=== PATIENT | female | born 1955 | race Caucasian/White ===

== ENCOUNTER → 2017-07-03 14:17 | Outpatient (CLI) | payer BC, SELFPAY ==
--- NOTE | 2017-07-03 14:20 | HPBI_ITS ---
MAMMOGRAPHY - BILATERAL SCREENING REASON FOR EXAM: Female, 61 years old. Routine annual screening examination. PERTINENT HISTORY: Non-contributory. Remote right stereotactic breast biopsy and prior ductal excision. TECHNIQUE: Digital bilateral breast tolu (3D mammographic acquisition) in the CC and MLO projections. 2-D mediolateral oblique (MLO) and craniocaudad (CC) views of both breasts were obtained. CAD: Full Field Digital Mammography with Computer Added Detection was performed. COMPARISON: Comparison is made with prior study dated June 07, 2016 and May 19, 2015. FINDINGS: Breast Composition: The breasts are heterogeneously dense, which may obscure small masses. There are no dominant masses or suspicious calcifications. Stable densely calcified nodule in the upper deep portion of the right breast. This measures 2.4 cm. This is unchanged and most likely represents a calcified fibroadenoma. A tissue clip marker is seen in the inferior midportion of the right breast. No other significant abnormalities are identified. There has been no significant change since the prior study. HPBI/SCREENING MAMM (CAD), BILAT IMPRESSION: Stable bilateral screening mammogram. Yearly follow-up mammogram recommended. (A) ASSESSMENT CATEGORY: BIRADS Category 2: Benign. A letter regarding these results will be sent to the patient by the facility within 30 days. Approximately 10% of breast cancers are not detected by mammography. A normal mammogram should not delay biopsy of a clinically suspicious abnormality. [id number] Electronically Signed: Raúl Farr MD at 8:48 EST Tel [phone], Service support ,
== END ==
PROVIDERS: Family Provider Family Medicine; PCP Family Medicine; Visit Provider Obstetrics & Gynecology
DX: Z12.31 Encounter for screening mammogram for malignant neoplasm of breast (principal)
CPT/HCPCS: 77063; 77067

== ENCOUNTER → 2018-07-21 13:27 | Outpatient (CLI) | payer BC, SELFPAY ==
--- NOTE | 2018-07-21 13:29 | BI_ITS ---
MAMMOGRAPHY - BILATERAL SCREENING REASON FOR EXAM: Female, 62 years old. Routine annual screening examination. PERTINENT HISTORY: Non-contributory. History of remote right stereotactic breast biopsy. TECHNIQUE: Digital bilateral breast tolu (3D mammographic acquisition) in the CC and MLO projections. 2-D mediolateral oblique (MLO) and craniocaudad (CC) views of both breasts were obtained. CAD: Full Field Digital Mammography with Computer Added Detection was performed. COMPARISON: Comparison is made with prior study dated July 03, 2017 and June 07, 2016. FINDINGS: Breast Composition: The breasts are extremely dense, which lowers the sensitivity of mammography. There are no dominant masses or suspicious calcifications. Stable densely calcified nodule in the anterior upper aspect of the right breast. This measures 2.4 cm. A tissue clip marker is once again seen in the inferior midportion of the right breast. No other significant abnormalities are identified. There has been no significant change since the prior study. BI/SCREENING MAMM (CAD), BILAT IMPRESSION: Stable bilateral screening mammogram. Yearly follow-up mammogram recommended. (A) ASSESSMENT CATEGORY: BIRADS Category 2: Benign. A letter regarding these results will be sent to the patient by the facility within 30 days. Approximately 10% of breast cancers are not detected by mammography. A normal mammogram should not delay biopsy of a clinically suspicious abnormality. [id number] Electronically Signed: Raúl Farr, at 14:56 EDT , Service support ,
== END ==
PROVIDERS: Family Provider Family Medicine; PCP Family Medicine; Referring Provider Obstetrics & Gynecology; Visit Provider Obstetrics & Gynecology
DX: Z12.31 Encounter for screening mammogram for malignant neoplasm of breast (principal)
CPT/HCPCS: 77063; 77067

== ENCOUNTER 2018-12-25 09:19 | Day surgery (SDC) | payer BC, SELFPAY ==
[2018-12-25] VITALS (12 sets, daily range): BP systolic 129–168; BP diastolic 71–89; PULSE 80–100; RESP 16; TEMP 36.2–36.9; O2SAT 97–100; BMI 25.0
[2018-12-25 10:01] LABS: Bedside Glucose 221 mg/dL (70-110)
--- NOTE | 2018-12-25 10:27 | PCM.HP.STD ---
Problem List (1) Screening for intestinal cancer Status: Acute History of Present Illness Date of Admission: 12/25/18 The patient is a 63 year old F who presents for screening colonoscopy today. She enjoys good health. She is diabetic. Glucoses run high in the morning. She denies bright red blood per rectum or melena. No abdominal pain. No change in bowel habits. She has never had a previous colonoscopy. Past Medical History Allergies latex Allergy (Verified 12/25/18 09:35) Rash Home Medications: Ambulatory Orders Medication Instructions Recorded Lisinopril 20 mg PO DAILY 10/25/14 Aspirin [Aspirin, Baby] 81 mg PO DAILY@0800 11/02/14 Cholecalciferol (Vitamin D3) 2,000 unit PO DAILY 11/02/14 [D3-2000] Multivit-Min/Iron Fum/Folic AC 1 each PO DAILY 11/02/14 [Monocaps Tablet] Cider Vinegar [Apple Cider Vinegar] 600 mg PO DAILY 12/18/18 L.acidoph,Paracasei, B.lactis 1 ea PO DAILY 12/18/18 [Probiotic] Loratadine 10 mg PO DAILY 12/18/18 Lovastatin 20 mg PO QHS 12/18/18 Pioglitazone [Actos] 30 mg PO DAILY 12/18/18 Smoking Status: Never smoker Tobacco Use: Non-smoker Review of Systems Constitutional: Denies: Anorexia HEENT: Denies: Difficulty Swallowing Cardiovascular: Denies: Chest Pain Respiratory: Denies: Cough Gastrointestinal: Denies: Abdominal Pain, Hematochezia, Melena Endocrine: Denies: Change in Body Habitus VTE Information - Inpt Only VTE Present on Admission: No Patient Problems: Active and Suspected Problems Screening for intestinal cancer (Acute) - Physical Exam General: Alert, Oriented x3, Cooperative, No apparent distress Oral: Moist Mucosa Neck: Supple Lungs: Clear to auscultation Cardiovascular: Regular rate, Regular Rhythm Abdomen: Bowel Sounds Present, Soft, Non Tender Extremities: No Calf Tenderness Neurological: - - Normal cognition Psych/Mental Status: Normal Affect Vital Signs Temp Pulse Resp BP Pulse Ox 97.2 F L 100 16 152/82 H 100 12/25/18 09:40 12/25/18 09:40 12/25/18 09:40 12/25/18 09:40 12/25/18 09:40 Oxygen Delivery Method Room Air Weight: 150 lb 2.157 oz Body Mass Index (BMI) 25.0 Finger Stick Blood Glucose 190 POC Glucose 12/25/18 09:49 POC Glucose 221 H Assessment/Plan All Active Problems Screening for intestinal cancer (Acute) I recommended the patient a screening colonoscopy today with possible biopsy or polypectomy is indicated. She is aware of the technique, benefits, risks, alternatives. She has had an opportunity to ask and have questions answered. Presents via our open access program today. Milo Rico M.D., F.A.C.S.
--- NOTE | 2018-12-25 10:57 | OP.ENDO_ITS ---
12/25/2018 Kvng Santillan Re : Colonoscopy procedure for Tara Iglesias Dear Jacque This procedure was performed on Tuesday, December 25, 2018. My impressions and recommendations are as follows: Impressions : - Hemorrhoids found on perianal exam. - Diverticulosis in the entire examined colon. - The examination was otherwise normal. - No specimens collected. Recommendations : - Discharge patient to home. - Resume previous diet. - Continue present medications. - Repeat colonoscopy in 10 years for screening purposes. My findings are described in the full procedure note, which is enclosed. If I can be of further assistance, please feel free to contact me at Doctor phone number(s): Work: . Sincerely, Milo Rico MD 12/25/2018 10:56:41 AM This report has been signed electronically.
== END 2018-12-25 11:45 | disposition home or self-care (01) ==
LOC: EN 09:20 → AC 09:21
PROVIDERS: Family Provider Family Medicine; PCP Family Medicine; Referring Provider Family Medicine; Visit Provider Surgery
PROC: 0DJD8ZZ Inspection of Lower Intestinal Tract, Via Natural or Artificial Opening Endoscopic (ICD-10-PCS; CPT 45378; principal; 2018-12-25 10:25)
DX: Z12.11 Encounter for screening for malignant neoplasm of colon (principal); E11.9 Type 2 diabetes mellitus without complications; Z91.040 Latex allergy status; Z79.82 Long term (current) use of aspirin; K64.9 Unspecified hemorrhoids; K57.30 Diverticulosis of large intestine without perforation or abscess without bleeding
CPT/HCPCS: 45378; 82962; 99152; 99153; J7120

== ENCOUNTER → 2019-09-30 13:45 | Outpatient (CLI) | payer OTHER, SELFPAY ==
[2019-07-26 09:01] VITALS: BMI 26.8
--- NOTE | 2019-09-30 13:48 | BI_ITS ---
MAMMOGRAPHY - BILATERAL SCREENING REASON FOR EXAM: Female, 64 years old. Routine annual screening examination. PERTINENT HISTORY: Non-contributory. Remote right excisional breast biopsy and stereotactic biopsy. TECHNIQUE: Digital bilateral breast charlene (3D mammographic acquisition) in the CC and MLO projections. 2-D mediolateral oblique (MLO) and craniocaudad (CC) views of both breasts were obtained. CAD: Full Field Digital Mammography with Computer Added Detection was performed. COMPARISON: Comparison is made with prior examination dated July 21, 2018 and July 03, 2017. FINDINGS: Breast Composition: The breasts are extremely dense, which lowers the sensitivity of mammography. There are no dominant masses or suspicious calcifications. Stable densely calcified nodule in the anterior superior aspect of the right breast. No other significant abnormalities are identified. There has been no significant change since the prior study. BI/SCREEN MAMM (CAD) W/CHARLENE BILAT IMPRESSION: Stable bilateral screening mammogram. Yearly follow-up mammogram recommended. (A) ASSESSMENT CATEGORY: BIRADS Category 2: Benign. A letter regarding these results will be sent to the patient by the facility within 30 days. Approximately 10% of breast cancers are not detected by mammography. A normal mammogram should not delay biopsy of a clinically suspicious abnormality. [id number] Electronically Signed: Raúl Farr, at 10:42 EDT , Service support ,
== END ==
PROVIDERS: PCP Family Medicine; Referring Provider Obstetrics & Gynecology; Visit Provider Obstetrics & Gynecology
DX: Z12.31 Encounter for screening mammogram for malignant neoplasm of breast (principal)
CPT/HCPCS: 77063; 77067

== ENCOUNTER → 2020-08-11 13:52 | Outpatient (CLI) | payer OTHER, SELFPAY ==
[2020-06-12 08:17] VITALS: BMI 24.3
--- NOTE | 2020-08-11 13:30 | VUL_PTH ---
PATIENT: DAVIS MAYFIELD LOC: [facility] U#:[id number] AGE/SX: 69/F ROOM: RE08/11/[address]: Dr. Jose Alfredo Nieto MD : 1955 BED: DIS: SPEC #: [id number] RECD: 08/11/20 14:36 STATUS: DEBI REHawk #: [id number] SHELBY: 08/11/20 13:[address]: Jose Alfredo Nieto DEPT: SURGICAL PATHOLOGY RECD BY: Татьяна Adame ENTERED: 08/14/20 08:22 SP TYPE: VULVA BX OTHR DR: Dr. Kvng Santillan MD Tissues: Vulva, NOS Procedures: Surgery Specimen Level IV HEADER OPERATION: Vulva and perineum biopsy PRE-OP DIAGNOSIS: N90.7 TISSUE SUBMITTED: A - Vulva biopsy left side, B - Perineum biopsy MICROSCOPIC DIAGNOSIS A. Left side vulva, biopsy: A piece of skin with underlying fibroadipose tissue, negative for dysplasia or malignancy. See comment. B. Perineum, biopsy: A piece of skin with mild chronic inflammation. Negative for dysplasia or malignancy. See comment. JENNIFER:myra 08/15/2020 COMMENT Clinical correlation and appropriate follow up are necessary. Case has been reviewed in consultation with Dr. White who concurs with the above diagnosis. IDC:AM MICROSCOPIC DESCRIPTION Slides are reviewed. GROSS DESCRIPTION A - Received in fixative is one container labeled with the patient's name and designated left side vulvar biopsy. The specimen consists of a piece of pearl-pink soft tissue measuring 0.6 x 0.6 x 0.3 cm. The specimen is totally submitted in one cassette. B - Received in fixative is one container labeled with the patient's name and designated perineum biopsy. The specimen consists of a piece of pearl-white skin measuring 0.4 x 0.2 x 0.1 cm. The specimen is totally submitted in one cassette. / JENNIFER:myra 08/14/20 TC:3 CPT: 28401 x2
== END ==
PROVIDERS: PCP Family Medicine; Visit Provider Obstetrics & Gynecology
DX: N90.7 Vulvar cyst (principal)
CPT/HCPCS: 88305

== ENCOUNTER → 2020-10-03 11:09 | Outpatient (CLI) | payer MEDICARE, BC, SELFPAY ==
[2020-06-12 08:17] VITALS: BMI 24.3
--- NOTE | 2020-10-03 11:13 | BI_ITS ---
MAMMOGRAPHY - BILATERAL SCREENING REASON FOR EXAM: Female, 65 years old. Routine annual screening examination. PERTINENT HISTORY: Non-contributory. Remote right excisional and right stereotactic breast biopsies. TECHNIQUE: Digital bilateral breast charlene (3D mammographic acquisition) in the CC and MLO projections. 2-D mediolateral oblique (MLO) and craniocaudad (CC) views of both breasts were obtained. CAD: Full Field Digital Mammography with Computer Added Detection was performed. COMPARISON: Comparison is made with prior study dated 09/30/2019 and 07/21/2018. FINDINGS: Breast Composition: The breasts are extremely dense, which lowers the sensitivity of mammography. There are no dominant masses or suspicious calcifications. Stable dense calcification in the upper deep central portion of the right breast. No other significant abnormalities are identified. There has been no significant change since the prior study. BI/SCRN MAMM (CAD)W/CHARLENE BILAT IMPRESSION: Stable bilateral screening mammogram. Yearly follow-up mammogram recommended. (A) ASSESSMENT CATEGORY: BIRADS Category 2: Benign. A letter regarding these results will be sent to the patient by the facility within 30 days. Approximately 10% of breast cancers are not detected by mammography. A normal mammogram should not delay biopsy of a clinically suspicious abnormality. [id number] Electronically Signed: Raúl Farr MD at 12:03 EDT , Service support ,
== END ==
PROVIDERS: PCP Family Medicine; Referring Provider Obstetrics & Gynecology; Visit Provider Obstetrics & Gynecology
DX: Z12.31 Encounter for screening mammogram for malignant neoplasm of breast (principal)
CPT/HCPCS: 77063; 77067

== ENCOUNTER → 2021-02-21 13:53 | Outpatient (CLI) | payer MEDICARE, BC, SELFPAY ==
--- NOTE | 2021-02-21 14:03 | MRI_ITS ---
STUDY: MRI BRAIN WITH AND WITHOUT CONTRAST (ATTENTION INTERNAL AUDITORY CANALS - I.A.C.''s) REASON FOR EXAM: Female, 65 years old. LT HEARING LOSS, DIZZINESS TECHNIQUE: Standardized multiplanar fat and water weighted pulse sequences were obtained. IV 13mL Dotarem was administered for the contrast portion of the examination. COMPARISON: None. FINDINGS: Normal bilateral temporal bones. Normal bilateral internal auditory canals. There is no demonstrated intracanalicular or cisternal vestibular schwannoma (acoustic neuroma). There is no enhancement of the bilateral VIIth or VIIIth cranial nerves. Normal bilateral cochlea, vestibules and semicircular canals. Normal size of the ventricles and extra-axial spaces for the patient''s age. Normal white matter tracts of the supratentorial brain. There is no evidence for recent intracranial ischemia or other cause of cytotoxic edema on diffusion weighted imaging (DWI). Normal bilateral basal ganglia. Normal thalami. Normal flow voids within the major intracranial circulation suggesting patency by spin echo criteria. Normal venous enhancement. There is no enhancing intra-axial or extra-axial abnormality. There is no extra-axial fluid accumulation. Normal sella turcica, pituitary gland, infundibular stalk, optic chiasm and hypothalamus. Normal tectal plate and pineal gland. Normal midbrain, susi and medulla. Normal cerebellum. Normal basal cisterns. No demonstrated orbital abnormality, within the constraints of a routine brain study. Mucosal thickening of the left sphenoid sinus consistent with chronic sinusitis. Normal calvarium and skull base. Normal visualized soft tissue structures. Normal visualized upper cervical spine. MRI/Brain W/WO Contrast IMPRESSION: Normal unenhanced and enhanced MRI of the bilateral internal auditory canals (I.A.C''s). Chronic left sphenoid sinusitis. Electronically Signed: Declan Dove MD at 15:54 EDT Tel , Service support ,
[2021-02-21 14:25] LABS: CREATININE FINGERSTICK 0.9 mg/dL (0.55-1.02); EGFR FINGERSTICK > 60.0000 mL/min (>60)
== END ==
PROVIDERS: PCP Family Medicine; Referring Provider Otolaryngology; Visit Provider Otolaryngology
DX: H90.42 Sensorineural hearing loss, unilateral, left ear, with unrestricted hearing on the contralateral side (principal); H93.12 Tinnitus, left ear; R42 Dizziness and giddiness
CPT/HCPCS: 70553; A9575

== ENCOUNTER → 2021-11-20 | Outpatient (CLI) | payer MEDICARE, BC, SELFPAY ==
--- NOTE | 2021-11-20 14:43 | BI_ITS ---
MAMMOGRAPHY - BILATERAL SCREENING REASON FOR EXAM: Female, 66 years old. Routine annual screening examination. PERTINENT HISTORY: Non-contributory. Prior right stereotactic breast biopsy. TECHNIQUE: Digital bilateral breast charlene (3D mammographic acquisition) in the CC and MLO projections. 2-D mediolateral oblique (MLO) and craniocaudad (CC) views of both breasts were obtained. CAD: Full Field Digital Mammography with Computer Added Detection was performed. COMPARISON: Comparison is made with prior study dated 10/03/2020 and 09/30/2019. FINDINGS: Breast Composition: The breasts are extremely dense, which lowers the sensitivity of mammography. There are no dominant masses or suspicious calcifications. Stable densely calcified nodule in the upper deep slightly lateral aspect of the right breast. No other significant abnormalities are identified. There has been no significant change since the prior study. BI/SCRN MAMM (CAD)W/CHARLENE BILAT IMPRESSION: Stable bilateral screening mammogram. Yearly follow-up mammogram recommended. (A) ASSESSMENT CATEGORY: BIRADS Category 2: Benign. A letter regarding these results will be sent to the patient by the facility within 30 days. Approximately 10% of breast cancers are not detected by mammography. A normal mammogram should not delay biopsy of a clinically suspicious abnormality. [id number] Electronically Signed: Raúl Farr MD at 15:27 EDT ,
== END | disposition home or self-care (01) ==
LOC: OPBI 14:41
PROVIDERS: PCP Family Medicine; Visit Provider Family Medicine
DX: Z12.31 Encounter for screening mammogram for malignant neoplasm of breast (principal)
CPT/HCPCS: 77063; 77067

== ENCOUNTER → 2021-12-18 | Outpatient (CLI) | payer MEDICARE, BC, SELFPAY ==
--- NOTE | 2021-12-18 15:11 | US_ITS ---
STUDY: RENAL ULTRASOUND - COMPLETE REASON FOR EXAM: Female, 66 years old. Normal renal function TECHNIQUE: Ultrasound evaluation of the kidneys was performed with real-time and static lopez-scale imaging. COMPARISON: None. FINDINGS: RIGHT KIDNEY: The right kidney measures 11.3 x 6.0 x 4.8 cm. The renal cortex measures 1.3 cm. There is no right renal mass or cyst. There are no right renal calculi. There is no right hydronephrosis. DISTAL RIGHT URETER: There is non-visualization of the distal right ureter. There is no demonstrated right ureterovesical junction calculus. There is a visualized right ureteral jet. LEFT KIDNEY: The left kidney measures 10.9 x 4.3 x 4.2 cm. The renal cortex measures 1.2 cm. There is no left renal mass or cyst. There are no left renal calculi. There is no left hydronephrosis. DISTAL LEFT URETER: There is non-visualization of the distal left ureter. There is no demonstrated left ureterovesical junction calculus. There is a visualized left ureteral jet. BLADDER: The distended urinary bladder has a volume of 161 ml. There is a normal wall thickness of the distended urinary bladder, measuring 4 mm. There is no demonstrated mass within the urinary bladder. There are no demonstrated bladder calculi. US/Kidney and Bladder IMPRESSION: Normal ultrasound of the kidneys and urinary bladder. Electronically Signed: John Apodaca MD at 4:54 EDT ,
== END | disposition home or self-care (01) ==
LOC: US 15:09
PROVIDERS: PCP Family Medicine; Referring Provider Family Medicine; Visit Provider Family Medicine
DX: N28.9 Disorder of kidney and ureter, unspecified (principal)
CPT/HCPCS: 76770

== ENCOUNTER → 2022-01-03 | Outpatient (CLI) | payer MEDICARE, BC, SELFPAY ==
--- NOTE | 2022-01-03 08:47 | US_ITS ---
STUDY: ABDOMINAL ULTRASOUND - RIGHT UPPER QUADRANT REASON FOR VISIT: Female, 66 years old worsening diabetes -- pancreas, liver, bile duct TECHNIQUE: Ultrasound evaluation of the right upper quadrant was performed with real-time and static terrazas-scale imaging. TECHNICAL QUALITY: Adequate. COMPARISON: None. FINDINGS: Liver: The liver measures 16.4 cm. There is a heterogeneous echogenicity of the liver. There is evidence of fatty infiltration of the liver with areas of focal fatty sparing. The bile ducts are within normal limits. There is hepatic color flow. The direction of portal flow is hepatopetal. There is no demonstrated mass lesion. Gallbladder: Normal distended gallbladder. The gallbladder wall measures 1.9 mm. There is a negative sonographic Knutson''s sign. There is no pericholecystic fluid. There are no gallstones. There is a 3 mm x 3 mm gallbladder polyp. Common Bile Duct (C.B.D.): The common bile duct measures 5.2 mm. Pancreas: Normal size of the head, body and tail of the pancreas. There is increased echogenicity of the pancreas. There is no demonstrated pancreatic mass or cyst. Right Kidney: Normal size of the right kidney. The right kidney measures 11.2 cm x 6.4 cm x 5.3 cm. Normal renal cortex. The right cortex measures 1.3 cm. There is no demonstrated renal mass or cyst. There is no right hydronephrosis. US/Abdomen Limited IMPRESSION: Heterogeneous appearance of the liver with evidence of fatty infiltration and focal areas of fatty sparing. 3 mm x 3 mm gallbladder polyp. Electronically Signed: Raúl Farr MD at 15:02 EDT ,
== END | disposition home or self-care (01) ==
LOC: US 08:46
PROVIDERS: PCP Family Medicine; Referring Provider Internal Medicine Endocrinology, Diabetes & Metabolism; Visit Provider Internal Medicine Endocrinology, Diabetes & Metabolism
DX: E11.9 Type 2 diabetes mellitus without complications (principal); Z80.0 Family history of malignant neoplasm of digestive organs
CPT/HCPCS: 76705

== ENCOUNTER → 2022-11-21 | Outpatient (CLI) | payer MEDICARE, BC, SELFPAY ==
--- NOTE | 2022-11-21 10:27 | BI_ITS ---
MAMMOGRAPHY - BILATERAL SCREENING REASON FOR EXAM: Female, 67 years old. Routine annual screening examination. PERTINENT HISTORY: Non-contributory. Remote right excisional breast biopsy and right stereotactic breast biopsy. TECHNIQUE: Digital bilateral breast charlene (3D mammographic acquisition) in the CC and MLO projections. 2-D mediolateral oblique (MLO) and craniocaudad (CC) views of both breasts were obtained. CAD: Full Field Digital Mammography with Computer Added Detection was performed. COMPARISON: Comparison is made with prior study dated November 20, 2021 and October 03, 2020. FINDINGS: Breast Composition: The breasts are extremely dense, which lowers the sensitivity of mammography. There are no dominant masses or suspicious calcifications. Stable densely calcified nodule in the upper posterior lateral aspect of the right breast. No other significant abnormalities are identified. There has been no significant change since the prior study. BI/SCRN MAMM (CAD)W/CHARLENE BILAT IMPRESSION: Stable bilateral screening mammogram. Yearly follow-up mammogram recommended. (A) ASSESSMENT CATEGORY: BIRADS Category 2: Benign. A letter regarding these results will be sent to the patient by the facility within 30 days. Approximately 10% of breast cancers are not detected by mammography. A normal mammogram should not delay biopsy of a clinically suspicious abnormality. [id number] Electronically Signed: Raúl Farr MD at 12:21 EDT ,
== END | disposition home or self-care (01) ==
LOC: OPBI 10:25
PROVIDERS: PCP Family Medicine; Referring Provider Family Medicine; Visit Provider Family Medicine
DX: Z12.31 Encounter for screening mammogram for malignant neoplasm of breast (principal)
CPT/HCPCS: 77063; 77067

== ENCOUNTER → 2022-12-26 | Outpatient (CLI) | payer MEDICARE, BC, SELFPAY ==
--- NOTE | 2022-12-26 08:55 | BD_ITS ---
STUDY: DUAL ENERGY X-RAY ABSORPTIOMETRY / DXA REASON FOR EXAM: Female, 67 years old. 627.8Menopausal postmenopausal BONE DENSITY REASON FOR EXAM TECHNIQUE: Bone Mineral Density (BMD) measurements of lumbar spine and bilateral hips were obtained. COMPARISON: None. FINDINGS: Lumbar Spine (L1-L4): g/cm2 (0.846) / T-score (-1.6) / Z-score (0.3) Findings are suggestive of osteopenia with a moderate fracture risk. Left Femur Total: g/cm2 (0.791) / T-score (-1.2) / Z-score (0.1) Left Femoral Neck: g/cm2 (0.751) / T-score (-0.9) / Z-score (0.8) Right Femur Total: g/cm2 (0.798) / T-score (-1.2) / Z-score (0.2) Right Femoral Neck: g/cm2 (0.748) / T-score (-0.9) / Z-score (0.7) BD/Dexa Bone Density Study IMPRESSION: The patient is considered osteopenic as outlined below according to World Tobias Organization (WHO) criteria with a moderate fracture risk. Reference Information: The T-score is the number of standard deviations above or below the standard which is normal for young adults at their peak bone mineral density. The World Health Organization (WHO) interprets the T-scores as follows: Above -1 Normal bone density Between -1 and -2.5 Osteopenia Equal to / or below -2.5 Osteoporosis As a practical clinical guideline, osteopenia may be graded as follows: Mild -1 through -1.5 Moderate -1.6 through -2.0 Severe -2.1 through -2.4 The Z-score is the number of standard deviations above or below age-matched controls. A Z-score of less than -1.5 would be considered abnormal. References: 1. NIH Osteoporosis and Related Bone Diseases www osteo.org 2. International Society for Clinical Densitometry www iscd.org 3. National Osteoporosis Foundation www nof.org Electronically Signed: Raúl Farr MD at 12:14 EDT ,
== END | disposition home or self-care (01) ==
LOC: OPBD 08:50
PROVIDERS: PCP Family Medicine; Referring Provider Family Medicine; Visit Provider Family Medicine
DX: Z78.0 Asymptomatic menopausal state (principal)
CPT/HCPCS: 77080

== ENCOUNTER → 2022-12-31 | Outpatient (CLI) | payer MEDICARE, BC, SELFPAY ==
[2022-12-31] VITALS (9 sets, daily range): BP systolic 105–145; BP diastolic 51–90; PULSE 86–106; RESP 12–18; TEMP 36.4; O2SAT 98–100; BMI 24.7
--- NOTE | 2022-12-31 | IMM_PTH ---
PATIENT: DAVIS MAYFIELD LOC: CT U#:[id number] AGE/SX: 67/F ROOM: RE12/31/[address]: Dr. Arcelia Curran MD : 1955 BED: DIS: 12/31/2022 SPEC #: [id number] RECD: 01/02/23 06:17 STATUS: DEBI REQ #: [id number] SHELBY: 12/31/22 00:[address]: Arcelia Curran DEPT: IMMUNOHISTOCHEMISTRY RECD BY: Andre Medina ENTERED: 01/02/23 06:20 SP TYPE: IMMUNO OTHR DR: Dr. Kvng Santillan MD Tissues: Bone marrow of iliac crest Procedures: BCL-2 (add) BCL-6 (add) CD10 (add) CD138 (add) CD15 (add) CD20 (add) CD23 (add) CD3 (add) CD30 (add) CD34 (add) CD43 (add) CD45 (add) CD5 (add) CD79A (add) CYCLIN (add) KAPPA (add) KI-67 (add) LAMBDA (add) MPO (add) MUM1 (add) C-MYC (add) Pankeratin (initial) CD68 (ADD) PHYSICIAN & [place] [id number] SPECIMEN INFORMATION: Tissue Source: A - Bone marrow core Clinical Info: Macrocytosis, pancytopenia,? MDS Specimen Number: [id number] CPT code: 42690, 89596 x 22 METHODOLOGY: Deparaffinized sections of prefer/formalin-fixed tissue or PAP/DQ stained slides are incubated with monoclonal/polyclonal antibodies/oligonucleotide probes. Localization is made via biotin free immunoperoxidase method. Appropriate controls are performed and reacted as expected. Results on target cell population are indicated in the following table: RESULTS: ANTIBODY / CLONE RESULT Block A AE1-3 (AE1/AE3/PCK26) negative CD3 (PS1) positive CD5 (SP10) positive CD20 (L26) negative CD43 (L60) positive CD45 (RP2/18) positive CD79a (11E3) positive, a few cells (including plasma cells) CD138 (B-A38) positive, a few cells [place] (polyclonal) positive Lambda (polyclonal) positive CD10 (56C6) negative CD15 (MMA) negative CD23 (1B12) positive, a few cells CD30 (Iker-H2) negative BCL-2 (bcl-2/100/D5) positive BCL-6 (HX300V/A8) negative [place] D1/BCL-1 (SP4) negative MUM1 (MRQ-43) positive, rare cells C-MYC (Y69) positive, rare cells MPO (polyclonal) positive, in myeloid cells CD68 (KP-1) positive, a few cells Ki-67 (30-9) positive, high, ~70% CD34 (QBEnd-10) negative These tests were developed and their performance characteristics determined by [facility]. They may not have been cleared or approved by the U.S. Food and Drug Administration. The FDA has determined that such clearance or approval is not necessary. The above immunohistochemical/dualISH markers are ordered by Dr. White and reviewed by the Pathologist. INTERPRETATION: Bone marrow core biopsy: Negative for metastatic carcinoma or acute leukemia. See comment. SJ:myra 01/06/2023 Comment: Mild interstitial infiltrates of lymphocytes and plasma cells noted, polytypic in nature.
--- NOTE | 2022-12-31 | BMB_PTH ---
PATIENT: DAVIS MAYFIELD LOC: CT U#:[id number] AGE/SX: 67/F ROOM: RE12/31/[address]: Dr. Arcelia Curran MD : 1955 BED: DIS: 12/31/2022 SPEC #: [id number] RECD: 12/31/22 10:08 STATUS: DEBI REHawk #: [id number] SHELBY: 12/31/22 00:[address]: Arcelia Curran DEPT: BONE MARROW RECD BY: Татьяна Adame ENTERED: 12/31/22 10:09 SP TYPE: BMB SOLANGE DR: Dr. Kvng Santillan MD Tissues: A - Bone marrow, NOS B - Bone marrow, NOS C - Bone marrow, NOS Procedures: Decalcification bone/plaque Bone Marrow Aspiration Bone Marrow Core Biopsy Iron Stain Bone Marrow HEADER OPERATION: Bone marrow biopsy and aspiration PRE-OP DIAGNOSIS: Macrocytosis, pancytopenia, ? MDS TISSUE SUBMITTED: A - Core, B - Clot, C - Smears, and send outs (flow, cytogenetics and MDS) BONE MARROW DIAGNOSIS Bone marrow core, clot and aspirate smears: Hypercellular marrow with megakaryocytic dysplasia and changes suggestive of myelodysplastic syndrome. See comment. SJ:myra 01/06/2023 COMMENT Flow cytometry study from [facility] shows no significant immunophenotypic abnormality. The complete report is viewable in patient's EMR. FISH and cytogenetic studies are pending. Case has been reviewed in consultation with Dr. White who concurs with the above diagnosis. IDC:AM BONE MARROW STUDY By Dr. White. CBC DATE: 12/31/2022 WBC 2.8; RBC 2.56; HGB 9.6; HCT 27.1; MCV 105.9; RDW 15; PLTS 126,000 SEGS 22.7%; LYMPHS 45.0%; MONOS 29.4%; EOS 1.1%; BASOS 0.7%, Immature granulocytes 1.1 PERIPHERAL SMEAR: Submitted. Pancytopenia RBC: Macrocytic anemia WBC: Relative monocytosis PLTS: Mild thrombocytopenia BONE MARROW ASPIRATE DIFFERENTIAL: Not performed ASPIRATE FINDINGS: Site: Right hip Aspicular Hypocellular The smears are markedly hemodiluted. Rare maturing bone marrow cells present. All submitted smears are examined. CORE BIOPSY FINDINGS: Site: Right hip Cellularity %: 80% M/E ratio: Increased Megakaryocytes: Dysmegakaryopoiesis with hypolobated, hypersegmented and micromegakaryocytes. Bony trabeculae: Within normal limits. Granulomas: 0 Lymphoid aggregate(s): 0 Atypical infiltrate(s): 0 Comment: Immunohistochemistry ([id number]) negative for metastatic carcinoma and acute leukemia. Mild interstitial infiltrates of lymphocytes and plasma cells are noted, polytypic in nature. ASPIRATE CLOT FINDINGS: Site: Right hip Cellularity %: 50-75% M/E ratio: Increased Megakaryocytes: Dysmegakaryopoiesis with hypolobated, hypersegmented and micromegakaryocytes. Granuloma(s): 0 Lymphoid aggregate(s): 0 Atypical infiltrate(s): 0 SPECIAL STAINS (with matched controls): Iron: No increased stainable iron. Reticulin: Mild increase of reticulin fibers is noted. PAS: Highlights myeloid elements and megakaryocytes. BONE MARROW GROSS A - Received is a container labeled with the patient's name and designated right hip bone marrow. The specimen consists of a cylindrical fragment of pearl bone measuring 1.7 cm in length and 0.2 cm in diameter. The specimen is totally submitted in one cassette after decalcification. B - Received labeled with the patient's name and designated right hip bone marrow clot is a specimen that consists of approximately 5 ml of reddish-pearl fluid that on filtration yields multiple irregular fragments of red-pearl soft tissue measuring in aggregate 2.5 x 1.7 x 0.1 cm. The specimen is totally submitted in one cassette. C - Also received are 16 unstained and 1 peripheral stained slides. The unstained slides are submitted for appropriate staining. Also received is one green top tube which is sent to our reference lab for flow, cytogenetics and MDS FISH. / AM:myra 12/31/2022 TC:5 CPT: 44738, 71189, 48094 x2, 96841 x3, 76249 ADDENDUM ADDENDUM ADDENDUM ADDENDUM ADDENDUM ADDENDUM ADDENDUM ADDENDUM ADDENDUM ADDENDUM ADDENDUM ADDENDUM 01/20/2023 15:14 ADDENDUM 01/20/2023 15:14 ADDENDUM 01/20/2023 15:14 ADDENDUM 01/20/2023 15:14 ADDENDUM 01/20/2023 15:14 CYTOGENETICS REPORT FROM [facility] CYTOGENETIC RESULT: No mitotic activity INTERPRETATION: No result MDS FISH PANEL FROM [facility] FISH RESULT: Normal MDS Panel Please see complete report in e-chart or EMR
--- NOTE | 2022-12-31 07:56 | CT_ITS ---
PROCEDURE: CT-guided bone marrow biopsy. DATE: 12/31/2022 INDICATION: 67-year-old female with pancytopenia. PHYSICIAN: Charles Toledo D.O. MEDICATIONS: 8 cc of 2% lidocaine was administered subcutaneously for local anesthesia. 1 mg of Versed and 50 mcg of fentanyl were utilized for sedation. Sedation start time: 8:42 AM. Sedation stop time: 9:15 AM. BIOPSY NEEDLE: 11-gauge bone marrow biopsy needle RADIATION DOSAGE (if supplied): Total exam DLP: 698.21. FINDINGS: The risks, benefits, and alternatives to the procedure were explained to the patient. The specific risks of bleeding, infection, and neurovascular injury were detailed and accepted. Witnessed informed consent was obtained. The patient was placed in a prone position in the CT scanner. An initial landfill attendant CT was performed to evaluate for approach of the iliac bone. A suitable approach was selected in the right iliac bone. The skin surface was prepared in the usual sterile fashion. 6 cc of local lidocaine was injected utilizing a 25-gauge injection needle. A 22-gauge spinal needle was placed to the level of the bone cortex utilizing CT guidance and an additional 2 cc of local lidocaine was injected. An 11-gauge bone marrow biopsy needle was then advanced into the right iliac bone utilizing periodic CT fluoroscopic guidance. After confirmation of needle position within the bone marrow, 2 cc of nonheparinized bone marrow aspirate and 5 cc of heparinized bone marrow aspirate were obtained and given to on-site pathology. An 11-gauge core biopsy sample was then obtained and the needle was withdrawn. The patient tolerated the procedure well and remained in stable condition throughout the procedure. There were no immediate complications. The patient was discharged home in stable condition after [address]/Biopsy/Inj or Needle Placement IMPRESSION: Successful CT-guided bone marrow biopsy. Electronically Signed: Charles Toledo DO at 11:18 EDT ,
[2022-12-31 07:58] LABS: Absolute Lymphocyte Count 1.27 X10^3/uL (0.83-4.51); Absolute Neutrophil Count 0.6 X10^3/uL (2.0-7.7); Basophil# 0.02 X10^3/uL; Basophil% 0.7 % (0-1); Eosinophil# 0.03 X10^3/uL; Eosinophils% 1.1 % (0-5); Hematocrit 27.1 % (37-47); Hemoglobin 9.6 g/dL (12.0-15.0); Lymphocyte # 1.27 X10^3/ul (0.83-4.51); Mean Corp Hgb Conc 35.4 g/dL (32-36); Mean Corpuscular Hgb 37.5 pg (27.0-32.0); Mean Corpuscular Volume 105.9 fL (81-99); Mean Platelet Vol. 9.7 fl (6.2-12.0); Monocyte# 0.83 X10^3/uL; Monocyte% 29.4 % (0-10); NRBC Flagged by Analyzer 0 % (0-5); Neutrophil # 0.64 X10^3/uL (2.7-7.7); Neutrophil % 22.7 % (47-70); POSITIVE DIFFERENTIAL YES; Platelet Count 126 K/mm3 (150-450); RBC Distribution Width SD 56.4 fl (35.1-43.9); Red Blood Count 2.56 M/mm3 (4.2-5.4); White Blood Count 2.8 K/mm3 (4.4-11.0)
[2022-12-31 08:07] LABS: Differential Indicated SCAN CRITERIA MET
[2022-12-31 08:17] LABS: International Normalized Ratio 0.9
[2022-12-31 08:39] LABS: Differential Comment SCANNED
[2022-12-31] MEDS: Midazolam 2 MG/2 ML Syringe IV (08:42)
[2022-12-31] MEDS: fentaNYL 100 MCG/2 ML Ampul IV (08:43)
[2022-12-31] MEDS: Lidocaine 2% (20 ml mdv) 20 ML Vial INFILT (08:58)
[2023-01-20 15:16] LABS: Miscellaneous Lab Procedure SEE PATH REPORT; Miscellaneous Lab Procedure 2 SEE PATH REPORT; Miscellaneous Lab Procedure 3 SEE PATH REPORT
== END | disposition home or self-care (01) ==
PROVIDERS: PCP Family Medicine; Referring Provider Internal Medicine Hematology & Oncology; Visit Provider Internal Medicine Hematology & Oncology
DX: D61.818 Other pancytopenia (principal); Z01.812 Encounter for preprocedural laboratory examination; N18.9 Chronic kidney disease, unspecified
CPT/HCPCS: 38221; 36415; 77012; 85025; 85610; 85730; 88305; 88311; 88313; 88341; 88342; 99156; 99157; J7050

== ENCOUNTER → 2023-09-02 | Outpatient (CLI) | payer MEDICARE, BC, SELFPAY ==
[2023-09-02 13:03] LABS: Anion Gap 7 (5-15); BUN 25 mg/dL (7-18); BUN/Creat Ratio 19.4 RATIO (10-20); Calcium,Total 9.3 mg/dL (8.5-10.1); Chloride 103 mmol/L (98-107); Creatinine, Serum 1.29 mg/dL (0.55-1.02); EST Glomerular Filtration Rate 44 mL/min (>60); Est Glom Filt Rate - Afr Amer 53 mL/min (>60); Glucose 189 mg/dL (74-106); Potassium 4.2 mmol/L (3.5-5.1); Sodium Level 135 mmol/L (136-145)
== END | disposition home or self-care (01) ==
LOC: MFPLAB 10:46
PROVIDERS: PCP Family Medicine; Visit Provider Family Medicine
DX: N18.30 Chronic kidney disease, stage 3 unspecified (principal)
CPT/HCPCS: 36415; 80048

== ENCOUNTER → 2023-12-02 | Outpatient (CLI) | payer MEDICARE, BC, SELFPAY ==
[2023-12-02] VITALS (14 sets, daily range): BP systolic 96–132; BP diastolic 29–68; PULSE 81–94; RESP 12–20; TEMP 36.6; O2SAT 96–100; BMI 22.3
--- NOTE | 2023-12-02 | IMM_PTH ---
PATIENT: DAVIS MAYFIELD LOC: CT U#:[id number] AGE/SX: 68/F ROOM: RE12/02/[address]: Dr. Arcelia Curran MD : 1955 BED: DIS: 12/02/2023 SPEC #: [id number] RECD: 12/03/23 11:52 STATUS: DEBI REQ #: [id number] SHELBY: 12/02/23 00:[address]: Arcelia Curran DEPT: IMMUNOHISTOCHEMISTRY RECD BY: Figueroa Orta ENTERED: 12/03/23 11:54 SP TYPE: IMMUNO OTHR DR: Eric Peacock MD Tissues: A - Bone marrow of iliac crest Procedures: BCL-2 (add) BCL-6 (add) CD10 (add) CD138 (add) CD15 (add) CD20 (add) CD23 (add) CD3 (add) CD30 (add) CD34 (add) CD43 (add) CD45 (add) CD5 (add) CD56 (add) CD79A (add) CYCLIN (add) KAPPA (add) KI-67 (add) LAMBDA (add) MPO (add) P53 (add) Vimentin (add) MUM1 (add) C-MYC (add) Pankeratin (initial) PHYSICIAN & [place] [id number] SPECIMEN INFORMATION: Tissue Source: A- Bone marrow core Clinical Info: Pancytopenia Specimen Number: [id number] CPT code: 12961,47902s85 METHODOLOGY: Deparaffinized sections of prefer/formalin-fixed tissue or PAP/DQ stained slides are incubated with monoclonal/polyclonal antibodies/oligonucleotide probes. Localization is made via biotin free immunoperoxidase method. Appropriate controls are performed and reacted as expected. Results on target cell population are indicated in the following table: RESULTS: ANTIBODY / CLONE RESULT Block A AE1-3 (AE1/AE3/PCK26) negative CD3 (PS1) negative CD5 (SP10) negative CD20 (L26) negative CD43 (L60) positive CD45 (RP2/18) negative CD79a (11E3) negative CD138 (B-A38) negative Oto (polyclonal) negative Lambda (polyclonal) negative CD10 (56C6) negative CD15 (MMA) positive CD23 (1B12) negative CD30 (Iker-H2) negative BCL-2 (bcl-2/100/D5) negative BCL-6 (PJ638E/A8) negative Cyclin D1/BCL-1 (SP4) negative MUM1 (MRQ-43) negative C-MYC (Y69) negative MPO (polyclonal) positive Vimentin (V9) positive CD34 (QBEnd-10) negative CD56 (123C3.D5) negative P53 (DO-7) negative, null pattern Ki-67 (30-9) positive, high These tests were developed and their performance characteristics determined by [facility]. They may not have been cleared or approved by the U.S. Food and Drug Administration. The FDA has determined that such clearance or approval is not necessary. The above immunohistochemical/dualISH markers are ordered and reviewed by the Pathologist. INTERPRETATION: A. Bone marrow core, bone biopsy: No evidence of lymphoproliferative disorder or plasma cell dyscrasia. AM/ 12/04/2023
[2023-12-02 08:02] LABS: Absolute Lymphocyte Count 1.26 X10^3/uL (0.83-4.51); Absolute Neutrophil Count 0.9 X10^3/uL (2.0-7.7); Basophil# 0.01 X10^3/uL; Basophil% 0.3 % (0-1); Eosinophil# 0.01 X10^3/uL; Eosinophils% 0.3 % (0-5); Hematocrit 25.9 % (37-47); Hemoglobin 8.6 g/dL (12.0-15.0); Lymphocyte # 1.26 X10^3/ul (0.83-4.51); Lymphocyte % 40.9 % (19-41); Mean Corp Hgb Conc 33.2 g/dL (32-36); Mean Corpuscular Hgb 33.6 pg (27.0-32.0); Mean Corpuscular Volume 101.2 fL (81-99); Mean Platelet Vol. 8.9 fl (6.2-12.0); Monocyte# 0.77 X10^3/uL; NRBC Flagged by Analyzer 0 % (0-5); Neutrophil # 0.88 X10^3/uL (2.7-7.7); Neutrophil % 28.6 % (47-70); POSITIVE DIFFERENTIAL YES; POSITIVE MORPHOLOGY YES; Platelet Count 144 K/mm3 (150-450); RBC Distribution Width SD 75.7 fl (35.1-43.9); RET-HE 35.5 pg (30-35); Red Blood Count 2.56 M/mm3 (4.2-5.4); Reticulocyte Count 3.33 % (0.5-1.5); White Blood Count 3.1 K/mm3 (4.4-11.0)
[2023-12-02 08:03] LABS: Differential Indicated SCAN CRITERIA MET
[2023-12-02 08:17] LABS: Prothrombin Time (Protime)PT. 13.4 SECONDS (11.7-14.9)
[2023-12-02 08:18] LABS: Partial Thromboplast Time 31.4 Seconds (24.1-36.2)
[2023-12-02 08:28] LABS: Anisocytosis 2+; Atypical Lymphocyte 1+ %; Differential Comment SCANNED; Polychromasia 1+
[2023-12-02] MEDS: 0.9% Normal Saline (250mL Bag) 250 ML 15 ML IV (08:51)
[2023-12-02] MEDS: Midazolam 2 MG/2 ML Syringe IV (08:52)
[2023-12-02] MEDS: fentaNYL 100 MCG/2 ML Ampul IV (08:56)
--- NOTE | 2023-12-02 09:00 | BMB_PTH ---
PATIENT: DAVIS MAYFIELD LOC: CT U#:[id number] AGE/SX: 68/F ROOM: RE12/02/[address]: Dr. Arcelia Curran MD : 1955 BED: DIS: 12/02/2023 SPEC #: [id number] RECD: 12/02/23 09:30 STATUS: DEBI REHawk #: [id number] SHELBY: 12/02/23 09:[address]: Arcelia Curran DEPT: BONE MARROW RECD BY: Татьяна Adame ENTERED: 12/02/23 09:48 SP TYPE: BMB OTHR DR: Eric Peacock MD Tissues: A - Bone marrow, NOS B - Bone marrow, NOS C - Bone marrow, NOS Procedures: Decalcification bone/plaque Bone Marrow Aspiration Bone Marrow Core Biopsy Iron Stain Bone Marrow HEADER OPERATION: Bone marrow biopsy PRE-OP DIAGNOSIS: Pancytopenia TISSUE SUBMITTED: A - Core, B - Clot, C - Smears, and send outs (flow, cytogenetics) BONE MARROW DIAGNOSIS Bone marrow biopsy and aspiration: Hypercellular bone marrow. Dyserythropoiesis and dysgranulopoiesis Dysmegakaryopoesis . Ring sideroblasts. See comment. VAL/ 12/04/2023 COMMENT A. Immunohistochemistry ([id number]) supports the above diagnosis. No increased blasts population identified. Flow cytometric analysis reveals hypogranular granulocytes and immature monocytes. No monoclonal b-cells are identified. Myeloblasts comprise 0.4% of the total cells analyzed and appear to have a normal phenotype. Plasma cells comprise less than 1% of the total population. These phenotypic findings are worrisome of a myeloid neoplasm such as myelodysplastic syndrome. The complete report is in EMR. Make reference to the patient's previous bone marrow biopsy ([id number]) in which a cellular bone marrow with dysplastic changes suggestive of myelodysplastic syndrome were identified. Case has been reviewed in consultation with Dr. Ponce who concurs with the above diagnosis. IDC:SJ BONE MARROW STUDY Slides are reviewed. CBC DATE: 12/02/23 WBC 3.1; RBC 2.56; HGB 8.6; HCT 25.9; MCV 101.2; RDW 21.0; PLTS 144,000 SEGS 28.6%; LYMPHS 40.9%; MONOS 25.0%; EOS 0.3%; BASOS 0.3% PERIPHERAL SMEAR: Submitted. RBC: Macrocytic anemia WBC: Leukopenia PLTS: Mild thrombocytopenia BONE MARROW ASPIRATE DIFFERENTIAL: 200 cell count. Blasts % (normal 0-2): 2 Promyelocytes % (normal 1-5): 4 Myelocytes and metamyelocytes % (normal 17-41): 28 Bands and Segs % (normal 15-32): 27 Eos % (normal 1-6): 2 Basos % (normal 0-1): 1 Monocytes % (normal 0-4): 2 Erythroid Precursors % (normal 17-35): 22 Lymphocytes % (normal 7-13): 10 Plasma Cells % (normal 0-2): 2 ASPIRATE FINDINGS: Site: Not specified Spicular Cellular M/E ratio: 3.0 (Normal 1.5 - 4.0) Megakaryocytes: Dismegakaryopoesis Erythropoiesis: Megoloblastoid change Granulopoiesis: Dysgranulopoiesis CORE BIOPSY FINDINGS: Site: Not specified Adequacy: Adequate Cellularity %: 80% M/E ratio: Within normal limit Megakaryocytes: Dismegakaryopoesis Bony trabeculae: Within normal limit Granulomas: 0 Lymphoid aggregate(s): 0 Atypical infiltrate(s): 0 Comment: Hypercellular ASPIRATE CLOT FINDINGS: Site: Not specified Marrow Particles: Many Cellularity %: 85% M/E ratio: Within normal limit Megakaryocytes: Dysmegakaropioiesis Granuloma(s): 0 Lymphoid aggregate(s): 0 Atypical infiltrate(s): 0 Comment: Hypercellular SPECIAL STAINS (with matched controls): Iron: Ring sideroblasts present but number less than 15%. Reticulin: No fibrosis identified PAS: Highlights myeloid elements and megakaryocytes. BONE MARROW GROSS A - Received is a container labeled with the patient's name and designated Bone marrow core. The specimen consists of multiple fragments of black blood mixed with small fragments of bone measuring in aggregate 2.0 x 0.5 x 0.1cm. The specimen is totally submitted in one cassette after decalcification. B - Received labeled with the patient's name and designated Bone marrow clot is a specimen that consists of approximately 3.0 ml of bloody fluid that on filtration yields multiple minute fragments of blood clots measuring in aggregate 0.5 x 0.5 x <0.1cm. The specimen is totally submitted in one cassette. C - Also received are 14 unstained and 1 peripheral stained slides. The unstained slides are submitted for appropriate staining. Also received are 2 green top tubes which are sent to our reference lab for flow, cytogenetics, MDS. JENNIFER/ 12/02/2023 TC:0 CPT: 92963, 65993, 53444 x2, 81878 x3, 52979 ADDENDUM ADDENDUM ADDENDUM ADDENDUM ADDENDUM ADDENDUM ADDENDUM ADDENDUM ADDENDUM ADDENDUM ADDENDUM ADDENDUM ADDENDUM ADDENDUM ADDENDUM ADDENDUM ADDENDUM ADDENDUM ADDENDUM ADDENDUM 12/12/2023 16:13 ADDENDUM 12/12/2023 16:13 ADDENDUM 12/12/2023 16:13 ADDENDUM 12/12/2023 16:13 ADDENDUM 12/12/2023 16:13 CYTOGENETICS REPORT FROM [facility] CYTOGENETIC RESULT: 46,XX (20) INTERPRETATION: Normal female karyotype was observed in twenty metaphases analyzed. MDS PANEL RESULT: Normal MDS panel INTERPRETATION: 5q: Normal 7q: Normal 8q: Normal 20q: Normal Please see complete report in e-chart or EMR
[2023-12-02] MEDS: Lidocaine 2% (20 ml mdv) 20 ML Vial INFILT (09:05)
--- NOTE | 2023-12-02 14:08 | PRO.PCM_ITS ---
Procedure Report Date of Procedure: 12/02/23 Assessment & Plan Assessment/Plan (1) Pancytopenia: PLAN: PROCEDURE: CT guided bone marrow biopsy and aspiration of the right posterior iliac bone ORDERING PROVIDER: Dr. Curran INDICATION: Female, 68 years old. Pancytopenia. PROVIDER: Carina Walter APRN-[employer] RADIATION DOSAGE (If Supplied By Facility): CTDIvol = 16.72 mGy, DLP = 229.15 mGycm. Individualized dose optimization techniques were utilized. CONSENT: The risks, benefits, and alternatives to the procedure were explained to the patient. The specific risk of hemorrhage requiring further treatment or intervention was detailed and accepted. Follow-up instructions were discussed with the patient and as well. Written informed consent was obtained. PRE-PROCEDURE SEDATION ASSESSMENT: Current history and physical dictated by re [facility] physician and reviewed. No clinical changes since date of exam. Patient has a Mallampati Score of Class 1 and ASA Class of 2. PROCEDURAL SEDATION PROTOCOL: The Drugs used were: 2 mg Versed, IV, and 50 mcg Fentanyl, IV. The sedation time was: 29 minutes, starting at 8:52 AM and terminated at 9:21 AM. The procedural sedation protocol was independently monitored by the department nurse. TECHNIQUE The patient was brought into the CT suite and placed in the prone position. An appropriate entry site was identified. The overlying skin was prepped and draped in the usual sterile fashion. 2% lidocaine was administered subcutaneously for local anesthesia. Under CT guidance, a bone marrow biopsy and bone marrow aspirate were performed of the right posterior iliac bone using an 11-gauge bone marrow biopsy kit. Hematology staff was present to prepare the specimen slides and transport the specimen to the laboratory for analysis. Hemostasis was obtained, and a sterile occlusive dressing was applied. The patient tolerated the procedure well without immediate complications. IMPRESSION: Successful CT guided bone marrow biopsy and aspiration of the right posterior iliac bone as described. Procedural Sedation protocol utilized with independent monitoring by the department nurse. Procedures Radiology Radiology US Procedures: Other Procedure See Report ([id number] bone marrow biopsy w/ aspirate and core) Multi Select Codes Radiology Radiology CT Procedures: [id number] CT guidance parenchymal tissue
[2023-12-02 15:47] LABS: Xtra CC BBK (Onc ONLY) EXTRA TUBE
[2023-12-15 14:02] LABS: Miscellaneous Lab Procedure SEE PATHOLOGY REPORT; Miscellaneous Lab Procedure 2 SEE PATHOLOGY REPORT; Miscellaneous Lab Procedure 3 SEE PATHOLOGY REPORT
== END | disposition home or self-care (01) ==
PROVIDERS: PCP Family Medicine; Referring Provider Internal Medicine Hematology & Oncology; Visit Provider Internal Medicine Hematology & Oncology
DX: Z01.812 Encounter for preprocedural laboratory examination (principal); D46.Z Other myelodysplastic syndromes; D61.818 Other pancytopenia; N18.32 Chronic kidney disease, stage 3b; D63.1 Anemia in chronic kidney disease
CPT/HCPCS: 38222; 36415; 77012; 85025; 85045; 85610; 85730; 88305; 88311; 88313; 88341; 88342; 99156; J7050; A4216

== ENCOUNTER → 2023-12-09 | Outpatient (CLI) | payer MEDICARE, BC, SELFPAY ==
--- NOTE | 2023-12-09 14:23 | BI_ITS ---
MAMMOGRAPHY - BILATERAL SCREENING REASON FOR EXAM: Female, 68 years old. Routine annual screening examination. PERTINENT HISTORY: Non-contributory. History of prior right stereotactic breast biopsy and right excisional breast biopsy. TECHNIQUE: Digital bilateral breast charlene (3D mammographic acquisition) in the CC and MLO projections. 2-D mediolateral oblique (MLO) and craniocaudad (CC) views of both breasts were obtained. CAD: Full Field Digital Mammography with Computer Added Detection was performed. COMPARISON: Comparison is made with prior study dated November 21, 2022 and November 20, 2021. FINDINGS: Breast Composition: The breasts are extremely dense, which lowers the sensitivity of mammography. There are no dominant masses or suspicious calcifications. Stable densely calcified nodule in the upper deep lateral aspect of the right breast. A tissue clip marker is seen in the inferior central portion of the right breast at the 6:00 position. No other significant abnormalities are identified. There has been no significant change since the prior study. BI/SCRN MAMM (CAD)W/CHARLENE BILAT IMPRESSION: Stable bilateral screening mammogram. Yearly follow-up mammogram recommended. (A) ASSESSMENT CATEGORY: BIRADS Category 2: Benign. A letter regarding these results will be sent to the patient by the facility within 30 days. Approximately 10% of breast cancers are not detected by mammography. A normal mammogram should not delay biopsy of a clinically suspicious abnormality. [id number] Electronically Signed: Raúl Farr MD at 15:14 EDT ,
== END | disposition home or self-care (01) ==
LOC: OPBI 14:23
PROVIDERS: PCP Family Medicine; Referring Provider Internal Medicine Hematology & Oncology; Visit Provider Internal Medicine Hematology & Oncology
DX: Z12.31 Encounter for screening mammogram for malignant neoplasm of breast (principal)
CPT/HCPCS: 77063; 77067

== ENCOUNTER 2023-12-25 07:09 | Day surgery (SDC) | payer MEDICARE, BC, SELFPAY ==
[2023-12-25] VITALS (8 sets, daily range): BP systolic 89–129; BP diastolic 42–67; PULSE 78–93; RESP 12–18; TEMP 36.1–36.3; O2SAT 70–100; BMI 21.5
--- NOTE | 2023-12-25 07:14 | PCM.HP.BLA ---
History and Physical Date of Admission: 12/25/23 Date of Service: 12/12/23 MR#: [id number] Acct: [id number] Name: DAVIS MAYFIELD Rep #: [id number] : 1955 Provider: Dr. Lindsey Arriaga MD Age/Sex: 68/F Location: [facility] Status: Signed Intake Vital Signs 12/08/2412:04 12/11/2413:07 Height 5 ft 3.5 in 5 ft 3.5 in Weight: 128 lb BMI 22.3 BP 126/65 H Blood Pressure Location Rt brachial Position Sitting Respiration 16 Intake Visit Reasons: PORT PLACEMENT Chief Complaint: port placement Service Center Manager Required: No Is patient in pain?: No Allergies latex Allergy (Verified 12/12/23 14:09) Rashmetformin Adverse Reaction (Intermediate, Verified 12/12/23 14:09) Diarrhea Medications ?Medication ?Instructions ?Recorded ?Confirmed ?Type loratadine 10 mg capsule 10 mg PO DAILY 12/18/18 12/12/23 History ascorbate calcium (vitamin C) 500 1 g PO DAILY 06/11/22 12/12/23 History mg tablet dulaglutide 3 mg/0.5 mL 3 mg subcut QWEEK 06/11/22 12/12/23 History subcutaneous pen injector (Trulicity) multivitamin 1 tab PO DAILY 06/11/22 12/12/23 History mecobalamin (vitamin B12) 2,500 2,500 mcg PO DAILY 04/15/23 12/12/23 History mcg chewable tablet ferrous sulfate 325 mg (65 mg 325 mg PO DAILY 04/29/23 12/12/23 History iron) tablet triamterene 37.5 1 cap PO DAILY 10/01/23 12/12/23 History mg-hydrochlorothiazide 25 mg capsule Have you fallen in the past year?: No PFSH Medical History Anemia of chronic renal failure, stage 3 (moderate) MDS (myelodysplastic syndrome), low grade Hypertension Pancytopenia Family history of pancreatic cancer Controlled type 2 diabetes mellitus with hyperglycemia, without long-term current use of insulin Surgical History H/O cataract extraction S/P JOI-BSO (total abdominal hysterectomy and bilateral salpingo-oophorectomy) Family History Mother Diabetes Hypertension Hyperlipidemia Social History Smoking Status: Never smoker alcohol intake: current alcohol intake frequency: a few times a week Alcohol type: beer substance use type: does not use what type of physical activity do you participate in: walking frequency: daily HPI HPI HPI: 68-year-old female presents due to MDS for port placement. Patient plans to get some weekly blood draws and will start chemo in the future unsure of date. ROS General General: No weight change, appetite, fatigue, colon cancer or breast cancer HEENT HEENT: Yes eye injury and eye surgery; No difficulty swallowing, swollen glands or hoarseness Endo Endocrine: Yes diabetes mellitus; No thyroid disease, thyroid cancer, Hair loss, heat intolerance or cold intolerance Skin Skin: No rash or changing moles Musc Musculoskeletal: No back problems, arthritis, rheumatoid arthritis, gout or joint pain Cardio Cardiovascular: Yes high blood pressure; No murmur, pacemaker, heart disease, atrial fibrillation, heart attack, heart stent, palpitations, shortness of breat with exertion or chest pain Psych Psychiatric: No depression, anxiety or hearing voices Resp Respiratory: No shortness of breath, No sleep apnea, No cough, No COPD, No asthma, No emphysema and No wheezing Gastro Gastrointestinal: No abdominal pain, No nausea or vomiting, No diarrhea, No constipation, No blood in stool, No acid reflux, No hemorrhoids, No ulcers, No gallbladder problem and No black,tarry stools Seven Hematologic: No blood thinners, Yes blood disorders, No bleeding, Yes anemia and No blood clots Neuro Neurologic: No numbness and No tingling Exam Const General: cooperative, healthy appearing, comfortable and no acute distress HENMT Head: normocephalic and atraumatic Neck Neck: supple Resp Effort & Inspection: normal respiratory effort Cardio Rate: regular rate GI Inspection: non-distended Skin General: no rashes or lesions noted Neuro General: CN's II-XI intact bilaterally Extrem General: normal to inspection Psych Mental Status: mental status grossly normal Attitude: cooperative Assessment and Plan Assessment and Plan (1) Encounter for insertion of venous access port: Status: Acute (2) MDS (myelodysplastic syndrome), low grade: Status: Chronic Plan I have discussed above with the patient- Port-a-Cath placement. Right possible left Patient has been counseled as to the risks/benefits of the procedure. I have explained the risks of the surgery, including but not limited to: infection, bleeding, injury to any blood vessels/nerves, injury to lungs (such as pneumothorax or hemothorax and need for chest tube), not having any access, nonfunctioning of port due to thrombosis, infection of port, etc. the patient understands and agrees to proceed. I have answered all the patient's questions to the patient?s satisfaction and the patient has no further questions. Lindsey Arriaga M.D. Pager: [phone] [facility] [address] [place] [address], [address] [place] [address] Office: [phone] Coding Level of Care Code Off vis,new,level 3 Diagnoses Encounter for insertion of venous access port Z45.2 MDS (myelodysplastic syndrome), low grade D46.Z Clinical Quality Measures Falls Risk Screening/Assistive Devices Have you fallen in the past year?: No 12/12/23 1423 <Electronically signed by Lindsey Arriaga MD> Date Lindsey Arriaga MD
[2023-12-25] MEDS: Lactated Ringers 1,000 ML 15 ML IV (07:37)
--- NOTE | 2023-12-25 07:47 | PRE.ANES_ITS ---
ASA Classification* ASA Classification ASA Classification: 3 Assessment & Plan Anesthesia* Anesthesia Assessment Anesthesia Assessment: Discussed sedation and/or anesthesia options, risks, benefits, and alternatives with patient/parents/legal guardian/POA. Questions invited. The patient/parents/legal guardian/POA seems to understand and agrees to proceed with anesthesia plan. Reviewed the physical assessment, medical history, allergy history and patient home medications list prior to surgery/procedure/anesthetic and documented any changes. Performed airway and anesthesia risk assessments. Anesthesia Type Anesthesia Type: MAC (see written pre-anesthesia record for full assessment) Anesthesia Focused Assessment* Temperature: 97 F Pulse Rate: 78 Blood Pressure: 129/60 Respiratory Rate: 18 Pulse Ox: 100 Airway Assessment Mouth opens: >3 cm Mallampati Score: II Focused Labs Anesthesia Preop lab: CBC WBC 3.5 K/mm3 (4.4-11.0) L 12/23/23 09:36 RBC 2.55 M/mm3 (4.2-5.4) L 12/23/23 09:36 Hgb 8.2 g/dL (12.0-15.0) L 12/23/23 09:36 Hct 25.5 % (37-47) L 12/23/23 09:36 Plt Count 121 K/mm3 (150-450) L 12/23/23 09:36 CHEMISTRY Potassium 4.2 mmol/L (3.5-5.1) 09/02/23 10:46 Sodium 135 mmol/L (136-145) L 09/02/23 10:46 BUN 25 mg/dL (7-18) H 09/02/23 10:46 Creatinine 1.29 mg/dL (0.55-1.02) H 09/02/23 10:46 Glucose 189 mg/dL (74-106) H 09/02/23 10:46 POC Glucose 221 mg/dL (70-110) H 12/25/18 09:49 TSH 2.94 uIU/mL (0.358-3.74) 12/18/22 14:05 COAG PT 13.4 SECONDS (11.7-14.9) 12/02/23 07:47 Pre-Assessment Diagnosis/Proposed Procedure Planned Operative Procedure(s): RIGHT POSS LEFT INTERNAL JUGULAR PORT Anesthesia History Anesthesia History - director counseling [facility]: Anesthesia History - director counseling [facility] Hx Hospitalization No 12/18/23 13:03 Any Problems With Anesthesia No 12/18/23 13:03 Cholinesterase deficiency No 12/18/23 13:03 You/Your Family Experience No 12/18/23 13:03 fever (hyperthermia) with Relationship Recent Exposure to Contagious No 12/25/23 07:39 Disease Does patient have nerve No 12/18/23 13:03 stimulator Patient instructed to have device shut off --Does patient have Pacemaker No 12/25/23 07:39 or ICD? When Was Last Pacemaker Check QUESTION #4 FULL TEXT: You/Your Family Experience fever (hyperthermia) with Anesthesia Last Oral Intake Last Oral intake: Last Oral Intake NPO since 00:00 12/25/23 07:39 Meds taken in AM with sips of Yes 12/25/23 07:39 water? Meds patient instructed to take am of surgery PONV PONV - director counseling bureau: PONV - director counseling bureau Female Yes 12/18/23 13:03 HX of Motion Sickness Yes 12/18/23 13:03 HX of N/V After Surgery No 12/18/23 13:03 Non-Smoker Yes 12/18/23 13:03 Duration of Surgery greater No 12/18/23 13:03 than 60 minutes Number of Risk Factors 3 12/18/23 13:03 PONV Score Moderate Risk 12/18/23 13:03 Height & Weight Height & Weight: Anesthesia: Height & Weight Height 5 ft 4 in 12/25/23 07:39 Weight: 56.971 kg 12/25/23 07:39 Body Mass Index (BMI) 21.5 12/25/23 07:39 Respiratory Assessment Respiratory Assessment - director counseling bureau: Respiratory Tract Infection Hx - director counseling bureau Hx Respiratory Tract Infection No 12/18/23 13:03 STOP Sleep Apnea STOP Sleep Apnea - director counseling bureau: STOP Sleep Apnea - director counseling bureau Hx Hypertension No 12/18/23 13:03 Hx Sleep Apnea No 12/18/23 13:03 CPAP No 12/25/18 10:58 BIPAP No 12/18/18 09:35 Do you snore loudly (louder No 12/18/23 13:03 than talking or can be heard Do you often feel tired/ No 12/18/23 13:03 fatigued/ sleepy during daytime? Has anyone observed you stop No 12/18/23 13:03 breathing during sleep? STOP Results Negative 12/18/23 13:03 QUESTION #5 FULL TEXT : Do you snore loudly (louder than talking or can be heard through closed doors)? 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 Specify any problems Hx of Preganancy in last 3 No 12/18/23 13:03 Months Nurse Filling Out Transfusion DSCHRIBER 12/18/23 13:03 & Questions: Date: 12/18/23 12/18/23 13:03 Time: 13:04 12/18/23 13:03 Patient unable to answer at this time (ie. confused, unrespo /Reproduction History /Reproductive History - director counseling bureau: /Reproductive Hx- director counseling bureau Hx Now No 12/18/23 13:03 Gestational Age (in weeks): EDC: Hx Hx Para Hx Section SAB No 12/18/23 13:03 Active Medications Active Medications: Current Medications Generic Name Dose Route Start Last Admin Trade Name Freq PRN Reason Stop Dose Admin Cefazolin Sodium 2 gm/ Sodium 110 mls @ 150 mls/hr 12/25/23 08:40 Chloride IV 12/25/23 09:23 PREOP ONE Lactated Ringer's 1,000 mls @ 15 mls/hr 12/25/23 07:15 12/25/23 07:37 IV 15 mls/hr .Q48H RYAN Administration PFSH Medical History Alcohol use History of renal disease Low iron Anemia Easy bruising Restless legs History of diverticulitis Non-smoker Leg cramps History of irregular heartbeat Menieres disease Anemia of chronic renal failure, stage 3 (moderate) MDS (myelodysplastic syndrome), low grade Pancytopenia Family history of pancreatic cancer Controlled type 2 diabetes mellitus with hyperglycemia, without long-term current use of insulin Home Medications ?Medication ?Instructions ?Recorded ?Last Taken ?Type loratadine 10 mg capsule 10 mg PO DAILY PRN PRN allergy 12/18/18 12/25/23 History symptoms ascorbate calcium (vitamin C) 500 1 g PO DAILY 06/11/22 12/25/23 History mg tablet dulaglutide 3 mg/0.5 mL 3 mg subcut SUAREZ 06/11/22 12/16/23 History subcutaneous pen injector (Trulicity) multivitamin 1 tab PO DAILY 06/11/22 12/25/23 History mecobalamin (vitamin B12) 2,500 2,500 mcg PO DAILY 04/15/23 12/25/23 History mcg chewable tablet triamterene 37.5 1 cap PO SUTH 10/01/23 12/25/23 History mg-hydrochlorothiazide 25 mg capsule Allergy/AdvReac Type Severity Reaction Status Date / Time latex Allergy Rash Verified 12/25/23 07:36 metformin AdvReac Intermediate Diarrhea Verified 12/25/23 07:36 Family History Mother Diabetes Hypertension Hyperlipidemia Surgical History Hx of colonoscopy H/O cataract extraction S/P JOI-BSO (total abdominal hysterectomy and bilateral salpingo-oophorectomy) Social History Smoking Status: Never smoker alcohol intake: current alcohol intake frequency: a few times a week Alcohol type: beer substance use type: does not use what type of physical activity do you participate in: walking frequency: daily Review of Systems (Anesthesia) ROS Narrative System reviewed and no additional complaints, except as documented.
[2023-12-25 08:02] LABS: Bedside Glucose 205 mg/dL (74-106)
[2023-12-25] MEDS: Cefazolin 2 GM in 0.9% Normal Saline (100mL Bag) 100 ML IV (08:22)
[2023-12-25] MEDS: Bupivacaine Mpf 0.5% 30 ML VIAL (08:36)
[2023-12-25] MEDS: Lidocaine 1% /Epi 1:100 (20ml) 20 ML Vial (08:36)
--- NOTE | 2023-12-25 08:56 | OP.PCM_ITS ---
Report of Operation Date of Procedure: 12/25/23 Pre-Operative Diagnosis: Z45.2, MDS Post-Operative Diagnosis: Same Surgery/Procedure Performed:: Placement of right IJ Port-A-Cath Use of ultrasound Use of fluoroscopy Surgeon: Lindsey Arriaga Type of Anesthesia: Local MAC Anesthesiologist: Jesse Robert Special Medications: Ancef 2 g IV x 1 Specimen's removed: None Estimated Blood Loss (mL): < 10 cc Description of Procedure: After informed consent was given, the patient was brought to the operating room and placed in the supine position. Appropriate time out protocol was followed. Patient was then given IV conscious sedation for anesthesia. The patient's right upper chest and neck were then prepped with a surgical skin preparation and sterile surgical drapes were placed. After proper landmarks were ascertained, the skin at the upper right chest area was then infiltrated with 1:1 mixture of 1% lidocaine with epinephrine and 0.5% marcaine. A needle trocar was then inserted into the right internal jugular vein with ultrasound guidance-multiple vessels were viewed with u/s and the right IJ was chosen-- and there was good aspiration of venous blood. A wire was then threaded into the needle trocar and this was visualized under fluoroscopy to ensure that the wire was in the superior vena cava. Once this was done, then the needle trocar was removed. A small skin tyron was made with an 11 blade knife at the wire entrance site. The dilator with the introducer sheath veronica ched was then placed over the wire into the right internal jugular vein via the Seldinger technique and this was visualized under fluoroscopy. The dilator and sheath were in proper position as visualized by fluoroscopy. A subcutaneous pocket was then created caudad to the catheter insertion site. A transverse skin incision was made after the skin and subcutaneous tissues were infiltrated with local anesthetic. Blunt dissection was then used to create a space large enough for placement of the subcutaneous port. The catheter was then tunneled into the subcutaneous pocket. The wire and dilator were then removed. The catheter was then threaded into the introducer sheath and was positioned with its tip at the junction of the superior vena cava and the right atrium as visualized under fluoroscopy. The excess catheter was transected. The catheter was then attached to the subcutaneous port using manufacturers guidelines. The catheter was flushed with a heparin saline mixture prior to placement. Hemostasis was carefully controlled with electrocautery. The port was sutured to the subcutaneous fascia using 2-0 Vicryl suture at two sites. The port was then placed in the subcutaneous pocket. The incision were reapproximated with interrupted subdermal 3-0 vicryl sutures. The skin was reapproximated with 3-0 nylon suture in a interrupted fashion. Steristrips were used for reinforcement of the skin closure at IJ insertion site and a sterile opsite dressings were applied. The patient tolerated the procedure well. Grafts/Implants Used: Bard PowerPort isp M.R.I. 6Fr Lot [id number] ref [id number] Complications none
--- NOTE | 2023-12-25 08:56 | RAD_ITS ---
STUDY: X-RAY CHEST REASON FOR EXAM: Female, 68 years old. PACU. Follow-up. TECHNIQUE: Single frontal view of the chest. COMPARISON: Chest CT dated November 25, 2018 FINDINGS: Right internal jugular catheter with tip projected over the mid to lower SVC. Hyperinflation with granulomatous calcifications. There is no demonstrated pleural abnormality. Mild cardiomegaly. Normal mediastinum and alesha. Normal visualized pulmonary arteries. Normal visualized aortic arch and descending thoracic aorta. Thoracic dextroscoliosis unchanged. Normal visualized ribs, clavicles, and shoulders. No abnormality of the visualized soft tissue structures of the upper abdomen. RAD/CXR for Line Placement IMPRESSION: Cardiomegaly with hyperinflation and no acute finding. Electronically Signed: Bryan May MD at 9:35 EDT ,
--- NOTE | 2023-12-25 08:58 | EX.PCM.DISCH ---
Discharge Instructions Procedure Port-A-Cath Diet Discharge Diet: Light diet - advance as tolerated Activity May shower in (days): 5 (Keep port site clean and dry x5 days. Neck incision okay to get wet after 1 day. Okay to lower shower and upper sponge bath. OR okay to taper off port site with a Ziploc bag to shower) Lifting Restrictions: No lifting > 15 pounds for 3 days with the arm on the side of the port Dressing / Incision Call your doctor if your incision/area has: Continuous Slow Oozing, Sudden Increased Bleeding, Increased Pain/ Swelling, Increased Redness, Foul Smelling Discharge and Swelling at the incision site Call your doctor if you observe: Fever of 101 or Higher Change Dressing in: 2 days (2-3 days- port site; ok to remove neck opsite in 1 day) Follow Up Care Please Follow Up With: Lindsey Arriaga MD When: In 10 days for permanent suture removal?call office for appointment Test Results: Test results from this visit will be discussed in further detail at your follow-up appointment, if applicable. Discharge Plan Admission Attending Provider: Lindsey Arriaga Primary Care Provider: Eric Peacock Instructions Print Language: Portuguese Discharge Orders/Prescriptions Prescriptions: Continued Trulicity 3 mg/0.5 mL pen injector 3 mg subcut SUAREZ multivitamin Tablet 1 tab PO DAILY ascorbate calcium (vitamin C) 500 mg tablet 1 g PO DAILY mecobalamin (vitamin B12) 2,500 mcg tablet,chewable 2,500 mcg PO DAILY triamterene-hydrochlorothiazid 37.5-25 mg capsule 1 cap PO SUTH Rx Instructions: Takes two days per week loratadine 10 MG capsule 10 mg PO DAILY PRN PRN (Reason: allergy symptoms) Referrals / Follow Up: Eric Peacock MD [Primary Care Provider] - Disposition Disposition (needs filled in before D/C Order can be placed): Home, Self Care
--- NOTE | 2023-12-25 09:05 | PCM.POST.ANE ---
Anesthesia: Postop Eval I Current Vital Signs Temperature: 97.4 F Pulse Rate: 86 Blood Pressure: 114/67 Respiratory Rate: 12 Pulse Ox: 99 Oxygen Delivery Method: Nasal Cannula Oxygen Flow Rate (L/min): 4 Assessment Airway patent: Yes Spontaneous unlabored respirations: Yes Mental status: Calm nausea: No Vomiting: No Anesthesia Complication: No Fluid Hydration Crystalloid volume administer (ml): 300 Total IV fluid infused: 300 Progress Note Anesthesia document: Postop Eval 1 completed: Yes
--- NOTE | 2023-12-25 09:22 | PCM.POSTANE2 ---
Anesthesia Postop Eval I Sum Postop Eval Completion status Anesthesia document: Postop Eval 1 completed: Yes Anesthesia Postop Eval I Summary Anesthesia Postop Eval I Summary: Anesthesia Postop Eval I: Assessment Summary Airway patent Yes 12/25/23 09:06 KB Spontaneous unlabored Yes 12/25/23 09:06 KB respirations Mental status Calm 12/25/23 09:06 KB nausea No 12/25/23 09:06 KB Vomiting No 12/25/23 09:06 KB Anesthesia Postop Eval I: Fluid Summary Crystalloid volume administer 300 12/25/23 09:06 KB (ml) Colloids volume administered ( ml) Blood Product volume administered (ml) Total IV fluid infused 300 12/25/23 09:06 KB Anesthesia Postop Eval I: Summary Notes Anesthesia Complication No 12/25/23 09:06 KB Anesthesia Complication Comment: Post-operative progress note Anesthesia: Postop Eval II Evaluation Mental status: Awake Pain Level: 0 nausea: No Vomiting: No
== END 2023-12-25 10:09 | disposition home or self-care (01) ==
LOC: SDC 07:10 → AC 07:12
PROVIDERS: PCP Family Medicine; Referring Provider Surgery; Visit Provider Surgery
PROC: (CPT 36561; principal; 2023-12-25 08:25)
DX: Z45.2 Encounter for adjustment and management of vascular access device (principal); D46.20 Refractory anemia with excess of blasts, unspecified; D61.818 Other pancytopenia; E11.22 Type 2 diabetes mellitus with diabetic chronic kidney disease; E11.65 Type 2 diabetes mellitus with hyperglycemia; N18.30 Chronic kidney disease, stage 3 unspecified; I12.9 Hypertensive chronic kidney disease with stage 1 through stage 4 chronic kidney disease, or unspecified chronic kidney disease; E78.2 Mixed hyperlipidemia; D63.1 Anemia in chronic kidney disease; Z79.85 Long-term (current) use of injectable non-insulin antidiabetic drugs; Z79.899 Other long term (current) drug therapy
CPT/HCPCS: 36561; 00532; 71045; 77001; 82962; J7120; J2405

== ENCOUNTER → 2024-12-09 | Outpatient (CLI) | payer MEDICARE, BC, SELFPAY ==
--- NOTE | 2024-12-09 08:50 | BI_ITS ---
EXAM: SCRN MAMM (CAD)W/CHARLENE BILAT DATE: 12/09/2024 CLINICAL HISTORY: F, Age 69 y/o , SCREENING No family history. History of prior right stereotactic breast biopsy and right excisional breast biopsy. TECHNIQUE: SCRN MAMM (CAD)W/CHARLENE BILAT COMPARISON: Prior exam(s) dated December 09, 2023.. FINDINGS: TISSUE DENSITY: The breasts are extremely dense, which lowers the sensitivity of mammography. Bilateral Breast Mammographic Findings: No significant masses, calcifications or other abnormalities are identified. Stable densely calcified nodular in the upper deep lateral aspect of the right breast suggestive of calcified fibroadenoma. A tissue clip marker is seen at the 6 o'clock position of the right breast. No suspicious masses, areas of developing architectural distortion, or suspicious calcifications. There has been no significant interval change. BI/SCRN MAMM (CAD)W/CHARLENE BILAT IMPRESSION: Stable examination. OVERALL FINAL ASSESSMENT BI-RADS 2: BENIGN RECOMMENDATION: Routine annual follow-up in 1 Year A letter with findings and recommendations will be mailed to the patient. Reading Location: [id number]
== END | disposition home or self-care (01) ==
LOC: OPBI 08:48
PROVIDERS: PCP Family Medicine; Referring Provider Family Medicine; Visit Provider Family Medicine
DX: Z12.31 Encounter for screening mammogram for malignant neoplasm of breast (principal)
CPT/HCPCS: 77063; 77067